=== PATIENT | female | born 1960 | race Caucasian/White ===

== ENCOUNTER 2023-03-21 17:16 | Inpatient (IN) | payer OTHER, MEDICARE ==
[~2023-03-21] VITALS: Ht 165.1 cm; Wt 68.4 kg
[2023-03-21] MEDS ORDERED: STEL90IN SC (18:20)
[2023-03-21] MEDS ORDERED: CYAN1000VL IM (18:20)
[2023-03-21] MEDS ORDERED: PROZ20CA11 PO (18:20)
[2023-03-21] MEDS ORDERED: PROZ40CA PO (18:20)
[2023-03-21] MEDS ORDERED: VITA100065 PO (18:20)
[2023-03-21] MEDS ORDERED: ASPI325T48 PO (18:20)
[2023-03-21] MEDS ORDERED: fentaNYL 100 MCG/2 ML INJECTION IV ONE (18:30)
[2023-03-21] MEDS ORDERED: NS 1,000 ML IV SCH (18:30)
[2023-03-21] MEDS ORDERED: propofoL 200 MG/20 ML VIAL IV.PROC PRN (18:45)
[2023-03-21 19:55] LABS: HEMATOCRIT 32.4 % (36.0-47.0); HEMOGLOBIN 10.9 g/dl (12.0-15.5); MEAN CORPUSCULAR HEMOGLOBIN 31.9 pg (27.0-33.0); MEAN CORPUSCULAR HGB CONC 33.6 g/dl (32.0-36.5); MEAN CORPUSCULAR VOLUME 94.7 fl (80.0-96.0); PLATELET COUNT, AUTOMATED 230 10^3/uL (150-450); RED BLOOD COUNT 3.42 10^6/uL (4.00-5.40); WHITE BLOOD COUNT 6.1 10^3/uL (4.0-10.0)
[2023-03-21] MEDS ORDERED: ASPI81TA26 PO (20:14)
[2023-03-21] MEDS ORDERED: ASCO500T PO (20:14)
[2023-03-21] MEDS ORDERED: NAPR-885 PO (20:14)
[2023-03-21] MEDS ORDERED: HOME MED LIST COMPLETE! XX SCH (20:15)
[2023-03-21 20:22] LABS: BLOOD UREA NITROGEN 16 MG/DL (9-23); CARBON DIOXIDE LEVEL 24 MMOL/L (20-31); CHLORIDE LEVEL 105 MMOL/L (98-107); GLOMERULAR FILTRATION RATE > 60.0 (>45); GLUCOSE, FASTING 91 MG/DL (74-106); POTASSIUM SERUM 4.4 MMOL/L (3.5-5.1); SODIUM LEVEL 137 MMOL/L (136-145)
[2023-03-21] MEDS ORDERED: MORPHINE 4 MG/ML 1ML VIAL IV PRN (20:25)
[2023-03-21] MEDS ORDERED: ACETAMINOPHEN TAB 650MG DOSE (2X325MG) PO PRN (20:25)
[2023-03-21] MEDS ORDERED: ONDANSETRON 4MG 2ML VIAL IV PRN (20:25)
[2023-03-21] MEDS ORDERED: HEPARIN SOD (PORCINE) 5000UNITS/ML 1ML VIAL/SYRINGE SC ONE (21:00)
[2023-03-21 22:02] VITALS: BP 164/86; TEMP 97.3; O2SAT 96
[2023-03-21] MEDS ORDERED: HYDROMORPHONE HCL 0.5 MG/ 0.5 ML SYRINGE IV ONE (22:45)
[2023-03-22] MEDS: LR 1,000 ML IV SCH ×2 (00:20→08:21)
[2023-03-22] MEDS: MORPHINE 2 MG/ML 1ML VIAL IV PRN ×3 (04:49→16:30)
[2023-03-22 05:11] VITALS: BP 161/88; TEMP 97.7; O2SAT 93
[2023-03-22 05:59] LABS: HEMATOCRIT 32.3 % (36.0-47.0); HEMOGLOBIN 10.8 g/dl (12.0-15.5); MEAN CORPUSCULAR HEMOGLOBIN 31.8 pg (27.0-33.0); MEAN CORPUSCULAR HGB CONC 33.4 g/dl (32.0-36.5); PLATELET COUNT, AUTOMATED 217 10^3/uL (150-450); WHITE BLOOD COUNT 6.8 10^3/uL (4.0-10.0)
[2023-03-22 06:26] LABS: BLOOD UREA NITROGEN 13 MG/DL (9-23); CALCIUM LEVEL 8.5 MG/DL (8.3-10.6); CARBON DIOXIDE LEVEL 26 MMOL/L (20-31); CHLORIDE LEVEL 103 MMOL/L (98-107); GLOMERULAR FILTRATION RATE > 60.0 (>45); GLUCOSE, FASTING 97 MG/DL (74-106); MAGNESIUM LEVEL 1.8 MG/DL (1.8-2.4); SODIUM LEVEL 134 MMOL/L (136-145)
[2023-03-22] MEDS: FLUoxetine 20MG CAP PO SCH ×2 (08:20→08:21)
[2023-03-22] MEDS ORDERED: SUCCINYLCHOLINE 100MG/5ML SYRINGE As Ordered ONE (10:33)
[2023-03-22] MEDS ORDERED: propofoL 200 MG/20 ML VIAL As Ordered ONE (10:33)
[2023-03-22] MEDS ORDERED: fentaNYL 100 MCG/2 ML INJECTION As Ordered ONE (10:34)
[2023-03-22] MEDS ORDERED: MIDAZOLAM INJ 2MG/2ML VIAL As Ordered ONE (10:34)
[2023-03-22 11:25] VITALS: BP 156/84; TEMP 97.9; O2SAT 92
[2023-03-22] MEDS: ENOXAPARIN 40MG/0.4ML SYRINGE (J1650 PER 10MG) SC SCH (12:14)
[2023-03-22 14:00] VITALS: BP 114/63; TEMP 97.5; O2SAT 94
[2023-03-22 19:18] VITALS: BP 149/82; TEMP 97.2; O2SAT 95
[2023-03-23 05:22] VITALS: BP 152/85; TEMP 98.1; O2SAT 94
[2023-03-23 08:40] LABS: BASO % 0.5 % (0.0-1.0); EOS # 0.4 10^3/uL (0.0-0.5); EOS % 5.5 % (0.0-3.0); HEMATOCRIT 34.6 % (36.0-47.0); HEMOGLOBIN 11.5 g/dl (12.0-15.5); LYMPH # 1.1 10^3/uL (1.5-5.0); LYMPH % 16.9 % (24.0-44.0); MEAN CORPUSCULAR HEMOGLOBIN 31.3 pg (27.0-33.0); MEAN CORPUSCULAR HGB CONC 33.2 g/dl (32.0-36.5); MEAN CORPUSCULAR VOLUME 94.3 fl (80.0-96.0); MONO # 0.4 10^3/uL (0.0-0.8); MONO % 5.8 % (2.0-8.0); NEUTROPHILS # 4.6 10^3/uL (1.5-8.5); NEUTROPHILS % 71.1 % (36.0-66.0); PLATELET COUNT, AUTOMATED 219 10^3/uL (150-450); RED BLOOD COUNT 3.67 10^6/uL (4.00-5.40); WHITE BLOOD COUNT 6.5 10^3/uL (4.0-10.0)
[2023-03-23] MEDS: ENOXAPARIN 40MG/0.4ML SYRINGE (J1650 PER 10MG) SC SCH (08:45)
[2023-03-23] MEDS: FLUoxetine 20MG CAP PO SCH ×2 (08:46)
[2023-03-23] MEDS: MORPHINE 2 MG/ML 1ML VIAL IV PRN (08:46)
[2023-03-23 08:59] LABS: BLOOD UREA NITROGEN 10 MG/DL (9-23); CALCIUM LEVEL 8.7 MG/DL (8.3-10.6); CARBON DIOXIDE LEVEL 26 MMOL/L (20-31); CHLORIDE LEVEL 104 MMOL/L (98-107); CREATININE FOR GFR 0.53 MG/DL (0.55-1.30); GLOMERULAR FILTRATION RATE > 60.0 (>45); GLUCOSE, FASTING 115 MG/DL (74-106); POTASSIUM SERUM 4.3 MMOL/L (3.5-5.1); SODIUM LEVEL 139 MMOL/L (136-145)
== END 2023-03-23 11:10 | disposition home or self-care (01) | DRG 349 ==
LOC: EDBD 17:16 → M ED 17:16 → M ED INP 20:23 → M MS5PR 22:00
PROVIDERS: ADMIT Internal Medicine; ATTEND Orthopaedic Surgery
PROC: 0SSBXZZ Reposition Left Hip Joint, External Approach (ICD-10-PCS; principal; 2023-03-22 11:00)
DX: T84.021A Dislocation of internal left hip prosthesis, initial encounter (principal); K50.90 Crohn's disease, unspecified, without complications; M19.90 Unspecified osteoarthritis, unspecified site; F32.A Depression, unspecified; E53.8 Deficiency of other specified B group vitamins; F41.9 Anxiety disorder, unspecified; Z96.643 Presence of artificial hip joint, bilateral; Z90.49 Acquired absence of other specified parts of digestive tract; Y83.1 Surgical operation with implant of artificial internal device as the cause of abnormal reaction of the patient, or of later complication, without mention of misadventure at the time of the procedure; Z79.82 Long term (current) use of aspirin; Z79.899 Other long term (current) drug therapy; Z79.1 Long term (current) use of non-steroidal anti-inflammatories (NSAID)